=== PATIENT | male | born 1980 | race Caucasian/White ===

== ENCOUNTER 2017-01-23 05:54 | Observation (INO) | payer BC ==
[2017-01-23] MEDS ORDERED: LIDOCAINE 1% 2 ML INJ ONE (06:20)
[2017-01-23] MEDS ORDERED: LR 1,000 ML IV ONE (06:41)
[2017-01-23] MEDS ORDERED: SURGIFLO MATRIX KIT WITH THROMBIN TP ONE (06:56)
[2017-01-23] MEDS ORDERED: BUPIVACAINE/EPI 0.25% 30 ML SDV ONE (06:56)
[2017-01-23] MEDS ORDERED: LIDO/EPI 1% **Not for Epidural 20 ML MDV ONE (06:56)
[2017-01-23] MEDS ORDERED: MIDAZOLAM 2 MG/2 ML VIAL ONE ×2 (07:12→07:15)
[2017-01-23] MEDS ORDERED: fentaNYL 250 MCG/5 ML INJ ONE ×2 (07:27→08:55)
[2017-01-23] MEDS ORDERED: PROPOFOL 200 MG/20 ML VIAL ONE (07:27)
[2017-01-23] MEDS ORDERED: fentaNYL 100 MCG/2 ML INJ ONE ×2 (13:15→14:15)
[2017-01-23] MEDS ORDERED: OXYMETAZOLINE 30 ML NASAL SPRAY EACHNARE PRN (13:30)
[2017-01-23] MEDS ORDERED: D5W 1/2 NS 1,000 ML IV SCH (13:30)
--- NOTE | 2017-01-23 14:26 | POSTOPPROG ---
Post Op Note Date of Operation: 01/23/17 Surgeon: Alireza Amaya Anesthesiologist: Warm Pre-op Diagnosis: Nasal obstruction, PATRICIA, recurrent sinusitis Post-op Diagnosis: Nasal obstruction, PATRICIA, recurrent sinusitis Indication: Nasal obstruction, PATRICIA, recurrent sinusitis Procedure: Revision Septoplasty, b/l max antrostomies, b/l ttl ethmoid, UPPP, BOT red. Inf/Abcess present in the surg proc area at time of surgery?: No Depth: Organ Space EBL: Minimal Complications: Possible CSF leak R. Specimen(s): R&L sinus contents, R&L tonsils
[2017-01-23] MEDS: ONDANSETRON 4 MG/2 ML VIAL IVP PRN ×2 (15:53→19:13)
[2017-01-23] MEDS: HEPARIN 5,000 UNIT/0.5 ML SYR SC SCH ×2 (15:53→21:53)
[2017-01-23] MEDS: HYDROCOD/APAP 7.5/325 IN 15ML UDCUP PO PRN ×2 (17:32→21:58)
[2017-01-24] MEDS: HYDROCOD/APAP 7.5/325 IN 15ML UDCUP PO PRN ×3 (02:23→09:47)
[2017-01-24] MEDS: HEPARIN 5,000 UNIT/0.5 ML SYR SC SCH (05:28)
--- NOTE | 2017-01-24 07:34 | SOAPPROG ---
SOAP Progress Note Assessment/Plan: Assessment: S/P UPPP, FESS, BOT reduction, Septoplasty, Turbinate reduction. Good post op findings. Plan: OK for home this afternoon. Must be able to wean O2. Hold off on using CPAP till Saturday 01/27. No bending, lifting more than 10 pounds, or straining for 10 days. Head elevated (while sleeping) till Saturday 01/27. Follow up in 1 week to remove splints. Call for appointment. [phone]. 01/24/17 07:31 Subjective: Pain controlled. No other complaints. Tolerating liquids. Objective: Vital Signs Temp Pulse Resp BP Pulse Ox 36.9 C 96 18 134/92 H 95 01/24/17 07:25 01/24/17 07:25 01/24/17 07:25 01/24/17 07:25 01/24/17 07:25 01/23/17 01/24/17 01/25/17 05:59 05:59 05:59 Intake Total 1750 Output Total 50 Balance 1700 Physical Exam - Physical Exam General Appearance: alert, no apparent distress EENT: other (Nasal splints in place, minimal crusting/bloody ooze. Palate incision intact.) Neck: full range of motion, supple Respiratory: No stridor, No wheezing Skin: normal color, warm/dry Neuro/Psych: alert, normal mood/affect ICD10 Worksheet Patient Problems: Problems Problem Status Onset PATRICIA (obstructive sleep apnea) Acute Post-op pain Acute - ICD10 Problem Qualifiers (1) Post-op pain (2) PATRICIA (obstructive sleep apnea)
[2017-01-24] MEDS ORDERED: DEXAMETHASONE 10 MG/ML VIAL IVP ONE (09:00)
[2017-01-24 11:19] VITALS: BP 138/85; PULSE 80; RESP 16; TEMP 98.1; O2SAT 91
--- NOTE | 2017-02-18 19:12 | GDS ---
[f rep st] DISCHARGE SUMMARY HOSPITAL COURSE: The patient was a 36-year-old who underwent a tonsillectomy, UPPP, and uvulectomy under general anesthesia. The patient arrived in the recovery room with vital signs stable. Oral a irway in place with stable airway, and the patient had an uneventful recovery room stay. Oral airwa y was removed. After approximately 15 minutes the patient received a total of 100 mcg of fentanyl f or a postoperative pain. Vital signs stable throughout recovery room stay. Neurovascular status st able. Cardiovascular status stable. Respiratory status stable. The patient was discharged to the floor in stable condition. /[id number]/MODL
--- NOTE | 2017-02-25 13:09 | GDS ---
[f rep st] DISCHARGE SUMMARY REASON FOR ADMISSION: Status post airway surgery. HOSPITAL COURSE: The patient was admitted to the hospital status post uvulopalatopharyngoplasty, ba se of tongue reduction, functional endoscopic sinus surgery with septoplasty and inferior turbinate reduction. He recovered well postoperatively and was admitted secondary to airway swelling concerns following sleep apnea surgery. The patient had an appropriate postoperative course and was able to resume his ADLs on postoperative day 1. He had good pain control and was tolerating an appropriate diet following his surgery. With this, he was determined to be an appropriate candidate for discha rge. He was discharged home with pain medications and antibiotics. Followup was to occur freddy martin 1 week later. /[id number]/MODL
--- NOTE | 2017-02-25 13:49 | GOP ---
[f rep st] OPERATIVE REPORT DATE OF OPERATION: 01/23/2017 SURGEON: Alireza Amaya MD ANESTHESIA: General. PREOPERATIVE DIAGNOSIS: Nasal obstruction, obstructive sleep apnea, recurrent sinusitis. POSTOPERATIVE DIAGNOSIS: Nasal obstruction, obstructive sleep apnea, recurrent sinusitis. PROCEDURE PERFORMED: Septoplasty, bilateral inferior turbinate reduction, bilateral total ethmoidec faye, bilateral maxillary antrostomies, cerebrospinal fluid leak repair, pedicled septal flap, uvulo palatopharyngoplasty, base of tongue reduction. FINDINGS: Ostiomeatal complex obstruction with bilateral maxillary and ethmoid disease, nasal septa l deviation, bilateral inferior turbinate hypertrophy, base of tongue hypertrophy, and redundant sof t palate tissue. SPECIMENS: Bilateral tonsils. ESTIMATED BLOOD LOSS: Minimal. DESCRIPTION OF PROCEDURE: The patient was brought to the operating room by Anesthesiology and place d on the operating table. Once the appropriate level of anesthesia was achieved, the soft palate wa s injected with a 27-gauge needle with 1% lidocaine with 1:100,000 epinephrine. As well, the bilate ral nasal columella, bilateral nasal septum, and bilateral maxillary lines, and bilateral inferior t urbinates, were injected with 1% lidocaine with 1:100,000 epinephrine. A total of 10 mL of lidocain e with epinephrine was used. At this point, Afrin-soaked pledgets were placed in bilateral nasal ca vities. The patient was prepped and draped in usual fashion. The operating table was then turned 9 0 degrees. A McIvor mouth gag was placed atraumatically in the oral cavity and used to retract the tongue. This was suspended on a Hicks stand. The right tonsil was excised first using Bovie electro cautery technique. There was minimal bleeding with this and hemostasis was achieved using Bovie virgen ctrocautery alone. The left tonsil was then excised using Bovie electrocautery technique. There wa s minimal bleeding with this and hemostasis was achieved using Bovie cautery alone. Bovie electroca utery was then used to make bilateral uvular advancement incisions on bilateral aspects of the uvula . This allowed for the uvula to be draped anteriorly and for the soft palate to be opened up somewh at. As the uvula was draped anteriorly, the soft palate was marked for the uvuloplasty site. Follo wing this, Bovie electrocautery was used to remove the mucosal surface of the uvuloplasty site and t he anterior aspect of the uvula. The uvula was draped forward and a mattress suture was placed at t he deep aspect of the pexy site and the anterior uvula. The tip was then sutured anteriorly with a [id number] 3-0 Vicryl suture. Two tacking sutures were made on the lateral aspects of the uvul a into the soft palate. These were interrupted 3-0 Vicryl sutures, the posterior of which was a fig [id number] suture. Bilaterally, the anterior and posterior tonsillar pillars were approximated us ing 3-0 Vicryl interrupted sutures. Two were used on each side. There was minimal bleeding with th is and no evidence of active bleeding once the suturing was completed. The surgical bed was then in jected with 0.25% bupivacaine with epinephrine. The McIvor mouth gag was then replaced with another McIvor that had a shorter retractor placed on it. This was placed posteriorly and a silk suture wa s placed through the tongue in order to retract the tongue. As the mouth gag was redeployed, this a llowed for visualization of the tongue base with a 70 degree rigid video endoscope. Once the epiglo ttis, vallecula, and tongue base were well visualized, the mouth gag was suspended from the [place] sta nd. The Coblator was then used to ablate and debulk of the tongue base from the vallecular on up to the superior tongue base lymphoid tissue. A significant amount of lymphoid tissue was able to be r emoved. There was minimal bleeding with this and hemostasis was achieved using the Coblation cauter y and Bovie suction electrocautery. The tongue stitch was removed and the McIvor mouth gag was mi jake. Attention was then turned to the sinonasal portion of procedure. The patient was redraped for this. The remainder of the procedure was performed under rigid video endoscopy. The Nelbee system was set up and calibrated. Once calibrated, there was good concordance found with the CT images and the patient's anatomy. The septoplasty was performed first. A left hemitransfixion incision was created with needle-tip Bovie electrocautery. A Ventura elevator and suction [place] were used to elevate the mucosal flap on the left. There was difficulty with this, as the nasal mucosa was extremely thin secondary to prior surgical treatment. The septal cartilage along the maxillary spine was significantly deviated, although the portions of cartilage superior to this were missing. As dissection continued, the thinned mucosa tore frequently and was difficult to elevate. Dissecti on continued posteriorly toward the deviated bony septum. Where bone was intact, the mucosa elevate d with only some difficulty. The septal mucosa had a moderate to significant [id number]-[id number] te ar at the end of the sputum. The deviated bone was removed with a Julianne. The cartilage along t he nasal floor and maxillary spine was removed with a combination of Julianne and osteotome. The r emainder of the septum appeared straight, allowing for good visualization bilaterally into the middl e meatus, and allowing for medialization of bilateral middle turbinates. The hemitransfixion incisi on was closed using 3-0 chromic sutures. Unfortunately, with the frail mucosa, the septal perforati on was unable to be closed as with reapproximation suturing. The needle-tip Bovie was then used to create an incision posteriorly to anteriorly from the nasal floor to approximately 1 cm posterior to the nasal vestibule on the left side. This pedicled flap was then elevated with a Ventura elevator. With the posterior pedicle in place, it was rotated superiorly to cover the septal perforation. 4 -0 chromic sutures were used to secure this in place, in both the posterior and superior aspects of the perforation. Once medialized, there was good visualization through to the anterior ethmoid. As the left total ethmoidectomy was completed with a combination of Kerrison, curette and upgoing Pete forbes, this was done with neuronavigation guidance and site checking of anatomy. Uncinectomy was th en performed with a [place] and straight-going through-cut. Once completed, the maxillary sinus was t hen probed with a ball probe. With the antrum found, the antrostomy was widened using a combination of back biter and straight-going through-cut. There was good visualization of the maxillary sinus with the 30 degree endoscope following this. The sinus was irrigated and suctioned out. At the rig ht-hand side, there was ostotic thickening along the ethmoids with what appeared to be prior resecti on of middle turbinate. A combination of these created some significant distortion of the anatomy, but the ethmoid cells were identified and able to be removed with a combination of Kerrison, upgoing Blakesley, and ethmoid curette. As ostotic bone was removed from the ethmoid roof, there appeared a small a small leak of clear fluid emanating from the ethmoid roof. This was investigated further. After some irrigation, it was determined that this was likely a CSF leak. Using the Romy elevat or, a mild amount of the surrounding bone and mucosa was removed from around the leak site. The muc nikko was harvested from the left middle turbinate and fashioned to form of a graft. This was placed over the leak site. This was then packed with Surgicel. There appeared no further CSF leak followi ng this patch. The total ethmoidectomy was then completed. The uncinectomy was then completed with a combination of [place] elevator and straight-going through-cut. A backbiter and straight-going thr ough-cut was then used to widen the maxillary antrostomy for opening of the right maxillary sinus. There was good visualization in the maxillary sinus following this,. Gentle irrigation took place o f this nasal cavity. Following this, a dissolvable sponge packing was placed over the Surgicel and graft. Attention was then turned to the inferior turbinates. A 2 mm turbinate microdebrider was us ed to complete a submucosal resection of bilateral inferior turbinates. Both used a single anterior insertion site with the submucosal resection being carried out under endoscopic visualization. The re was good soft tissue reduction of bilateral turbinates. The right turbinate was then infractured and outfractured using a [place]. The infracture and outfracture were then repeated at the left infe rior turbinate using a [place]. Bilateral nasal cavities were then inspected for bleeding. None was found. The CSF site was inspected around the packing with no additional leakage found. Surgiflo wa s placed at bilateral ethmoid roofs and around the packing at the right. The patient tolerated the procedure well and was extubated in the operating room prior to being transferred in good condition to the postanesthesia care unit. COMPLICATIONS: CSF leak at the right ethmoid roof. OPERATIVE INDICATIONS: The patient was seen at an outpatient clinic and was found to have a long hi story of recalcitrant obstructive sleep apnea, nasal obstruction, and recurrent sinusitis. Given hi s history and findings, he was determined to be an appropriate candidate for the above-stated proced ures. The risks, benefits, and alternatives to the procedures were explained at length to the patie nt. He stated he understood and wished to go forward with the procedure. /[id number]/MODL
== END 2017-01-24 13:11 | disposition home or self-care (01) ==
LOC: F3N 05:54 → F3E 08:17
PROVIDERS: ADMIT Otolaryngology; ATTEND Otolaryngology
PROC: 8E09XBZ Computer Assisted Procedure of Head and Neck Region (ICD-10-PCS; principal; 2017-01-23 07:15)
PROC: 09CR4ZZ Extirpation of Matter from Left Maxillary Sinus, Percutaneous Endoscopic Approach (ICD-10-PCS; principal; 2017-01-23 07:15)
PROC: 09CQ4ZZ Extirpation of Matter from Right Maxillary Sinus, Percutaneous Endoscopic Approach (ICD-10-PCS; principal; 2017-01-23 07:15)
PROC: 0C57XZZ Destruction of Tongue, External Approach (ICD-10-PCS; principal; 2017-01-23 07:15)
PROC: 09TU4ZZ Resection of Right Ethmoid Sinus, Percutaneous Endoscopic Approach (ICD-10-PCS; principal; 2017-01-23 07:15)
PROC: 0CTPXZZ Resection of Tonsils, External Approach (ICD-10-PCS; principal; 2017-01-23 07:15)
PROC: 09TV4ZZ Resection of Left Ethmoid Sinus, Percutaneous Endoscopic Approach (ICD-10-PCS; principal; 2017-01-23 07:15)
PROC: 0CS Mouth and Throat, Reposition (ICD-10-PCS; principal; 2017-01-23 07:15)
PROC: 00U207Z Supplement Dura Mater with Autologous Tissue Substitute, Open Approach (ICD-10-PCS; principal; 2017-01-23 07:15)
PROC: 095L4ZZ Destruction of Nasal Turbinate, Percutaneous Endoscopic Approach (ICD-10-PCS; principal; 2017-01-23 07:15)
PROC: 09SM4ZZ Reposition Nasal Septum, Percutaneous Endoscopic Approach (ICD-10-PCS; principal; 2017-01-23 07:15)
DX: J35.1 Hypertrophy of tonsils (principal); J34.2 Deviated nasal septum; J34.89 Other specified disorders of nose and nasal sinuses; G47.33 Obstructive sleep apnea (adult) (pediatric); J32.0 Chronic maxillary sinusitis; J32.2 Chronic ethmoidal sinusitis; K14.3 Hypertrophy of tongue papillae; G97.81 Other intraoperative complications of nervous system; G96.0 Cerebrospinal fluid leak
CPT/HCPCS: 30130; 30520; 31255; 31256; 31290; 41530; 42145; 42826; G0378; C1874; J2250; J2405; J2704; J3010